=== PATIENT | male | born 1995 | race African-American/Black ===

== ENCOUNTER 2017-03-06 16:33 | Emergency (ER) | payer MEDICAID ==
[~2017-03-06] VITALS: Ht 185.4 cm; Wt 73.0 kg
[~2017-03-06 16:33] MED LIST: DIPH25CA83 PO; IBUP-1509 PO; IBUP-1510 PO; KEPP500 PO; RISO02 PO; TOPI100T9 PO
[2017-03-06 16:35] VITALS: BP 131/77
[2017-03-06] MEDS ORDERED: ACETAMINOPHEN 650MG/20.3ML UDC PO ONE (17:45)
== END 2017-03-06 17:54 | disposition home or self-care (01) ==
LOC: ER 16:43
DX: S01.81XA Laceration without foreign body of other part of head, initial encounter (principal); J45.909 Unspecified asthma, uncomplicated; F84.0 Autistic disorder; Z91.018 Allergy to other foods; W22.8XXA Striking against or struck by other objects, initial encounter; Y93.89 Activity, other specified; Y92.89 Other specified places as the place of occurrence of the external cause; Y99.8 Other external cause status
CPT/HCPCS: 99283

== ENCOUNTER 2018-07-05 13:07 | Emergency (ER) | payer MEDICAID ==
[~2018-07-05] VITALS: Ht 177.8 cm; Wt 77.0 kg
[~2018-07-05 13:07] MED LIST changes: -IBUP-1509 PO; -IBUP-1510 PO; +IBUP-2028 PO; +IBUP-2030 PO; +TOP100 PO; -TOPI100T9 PO
[2018-07-05 13:34] VITALS: BP 109/74
== END 2018-07-05 14:51 | disposition home or self-care (01) ==
LOC: ER 14:18
DX: S00.83XA Contusion of other part of head, initial encounter (principal); W06.XXXA Fall from bed, initial encounter; Y93.84 Activity, sleeping; Y92.092 Bedroom in other non-institutional residence as the place of occurrence of the external cause; G40.909 Epilepsy, unspecified, not intractable, without status epilepticus; F90.9 Attention-deficit hyperactivity disorder, unspecified type; F84.0 Autistic disorder; R03.0 Elevated blood-pressure reading, without diagnosis of hypertension; Z91.012 Allergy to eggs; Z91.02 Food additives allergy status; Z91.010 Allergy to peanuts; Z91.018 Allergy to other foods; Z79.899 Other long term (current) drug therapy
CPT/HCPCS: 99281

== ENCOUNTER 2021-07-03 06:48 | Emergency (ER) | payer MEDICAID, OTHER | END 2021-07-03 09:00 | disposition left against medical advice (07) | LOC: ER 06:48 | DX: Z53.21 Procedure and treatment not carried out due to patient leaving prior to being seen by health care provider (principal) ==

== ENCOUNTER 2021-10-15 02:21 | Emergency (ER) | payer OTHER ==
[~2021-10-15] VITALS: Ht 182.9 cm; Wt 82.0 kg
[2021-10-15] MEDS ORDERED: OLANZAPINE 10 MG/VIAL IM ONE (03:00)
[2021-10-15] MEDS ORDERED: HALOPERIDOL LACTATE 5MG/ML VIAL IM ONE (03:30)
[2021-10-15 04:30] VITALS: BP 99/48
== END 2021-10-15 06:42 | disposition home or self-care (01) ==
LOC: ER 02:21
DX: S00.81XA Abrasion of other part of head, initial encounter (principal); J45.909 Unspecified asthma, uncomplicated; Z98.890 Other specified postprocedural states; Z91.018 Allergy to other foods; Z79.899 Other long term (current) drug therapy; Z86.59 Personal history of other mental and behavioral disorders; W22.01XA Walked into wall, initial encounter; Y93.89 Activity, other specified; Y92.89 Other specified places as the place of occurrence of the external cause; Y99.8 Other external cause status
CPT/HCPCS: 96372; 99283; J3490

== ENCOUNTER 2022-11-12 19:06 | Inpatient (IN) | payer MEDICAID, OTHER ==
[~2022-11-12] VITALS: Ht 182.9 cm; Wt 81.6 kg
[2022-11-12] MEDS ORDERED: DIPHENHYDRAMINE 25MG CAPSULE PO ONE (20:00)
[2022-11-12] MEDS ORDERED: SODIUM CHLORIDE 0.9% 1000ML BAG (SEPSIS BOLUS) IV ONE (20:00)
[2022-11-12 20:39] LABS: BASOPHILS % 0.2 % (0.0-2.0); EOSINOPHILS % 0.3 % (0.0-5.0); HEMATOCRIT. 50.8 % (42.0-52.0); HEMOGLOBIN. 17.4 g/dL (14.0-18.0); LYMPHOCYTES % 11.7 % (20.0-50.0); MEAN CORPUSCULAR HEMOGLOBIN 31.4 pg (28.0-32.0); MEAN CORPUSCULAR VOLUME 91.6 fL (80.0-94.0); MEAN PLATELET VOLUME 9.5 fl (7.4-10.4); MONOCYTES % 4.5 % (2.0-8.0); NEUTROPHILS % 83.3 % (40.0-76.0); PLATELET 197 x1000/uL (130-400); RED BLOOD CELL COUNT 5.54 mill/uL (4.7-6.1); RED CELL DISTRIBUTION WIDTH 12.8 % (11.6-14.6)
[2022-11-12 20:44] LABS: CHLORIDE 110 mEq/L (98-107)
[2022-11-12 20:50] LABS: INR 1.1; PROTHROMBIN TIME 11.9 sec (9.6-11.0)
[2022-11-12] MEDS ORDERED: PIPERACILLIN/TAZOBACTAM 3.375GM/50ML PREMIX IV ONE (22:00)
[2022-11-12] MEDS ORDERED: VANCOMYCIN 1G PREMIX 200 ML IV NR (22:00)
[2022-11-12] MEDS ORDERED: PIPERACILLIN/TAZOBACTAM 3.375G in DEXT 5% WATER 50ML IV NR (22:00)
[2022-11-13] MEDS ORDERED: LORAZEPAM 2MG/ML CPJ IM PRN (00:45)
[2022-11-13 02:15] LABS: CLARITY URINE CLOUDY (CLEAR); COLOR URINE YELLOW (YELLOW); KETONES URINE TRACE (NEGATIVE); LEUKOCYTE ESTERASE URINE NEGATIVE (NEGATIVE); NITRITE URINE NEGATIVE (NEGATIVE); OCCULT BLOOD URINE NEGATIVE (NEGATIVE); PROTEIN URINE TRACE (NEGATIVE); SPECIFIC GRAVITY URINE 1.022 (1.005-1.030); UROBILINOGEN URINE 0.2 E.U./dL (0.2-1.0)
[2022-11-13] MEDS ORDERED: HALOPERIDOL LACTATE 5MG/ML VIAL IM ONE (02:45)
[2022-11-13] MEDS ORDERED: DIPHENHYDRAMINE 50MG/ML VIAL IM ONE (02:45)
[2022-11-13 04:35] VITALS: BP 108/70
[2022-11-13] MEDS ORDERED: DIPHENHYDRAMINE 25MG CAPSULE PO SCH (05:15)
[2022-11-13] MEDS ORDERED: HALOPERIDOL LACTATE 5MG/ML VIAL IM SCH (07:30)
[2022-11-13] MEDS: TOPIRAMATE 100MG TABLET PO SCH ×2 (08:08→16:42)
[2022-11-13] MEDS: LEVETIRACETAM 500MG TABLET PO SCH ×2 (08:08→16:42)
[2022-11-13] MEDS: RISPERIDONE 0.5MG TABLET PO SCH ×2 (08:09→16:42)
[2022-11-13 10:31] LABS: BASOPHILS % 0.2 % (0.0-2.0); EOSINOPHILS % 5.3 % (0.0-5.0); HEMATOCRIT. 39.2 % (42.0-52.0); HEMOGLOBIN. 13.6 g/dL (14.0-18.0); LYMPHOCYTES % 15.7 % (20.0-50.0); MEAN CORPUSCULAR HEMOGLOBIN 31.9 pg (28.0-32.0); MEAN CORPUSCULAR VOLUME 92.1 fL (80.0-94.0); MEAN PLATELET VOLUME 9.1 fl (7.4-10.4); MONOCYTES % 8.7 % (2.0-8.0); NEUTROPHILS % 70.1 % (40.0-76.0); PLATELET 134 x1000/uL (130-400); RED BLOOD CELL COUNT 4.25 mill/uL (4.7-6.1); RED CELL DISTRIBUTION WIDTH 12.8 % (11.6-14.6)
[2022-11-13 10:39] LABS: CHLORIDE 114 mEq/L (98-107)
[2022-11-13 12:00] VITALS: BP 101/48
[2022-11-13 16:00] VITALS: BP 100/52
[2022-11-13 16:46] VITALS: BP 100/52
== END 2022-11-13 18:21 | disposition home or self-care (01) | DRG 811 ==
LOC: ER 19:06 → 7EST 22:46 → EDBEDREQ 11-13 00:39 → ENRESERV 11-13 04:08
PROVIDERS: ADMIT Internal Medicine; ATTEND Internal Medicine
DX: T78.40XA Allergy, unspecified, initial encounter (principal); N17.0 Acute kidney failure with tubular necrosis; D64.9 Anemia, unspecified; Z20.822 Contact with and (suspected) exposure to COVID-19; F84.0 Autistic disorder; J45.909 Unspecified asthma, uncomplicated; Z91.010 Allergy to peanuts; Z91.012 Allergy to eggs; Z91.018 Allergy to other foods; D72.829 Elevated white blood cell count, unspecified
CPT/HCPCS: 36415; 71045; 80048; 80053; 81003; 82962; 83605; 83880; 84145; 84484; 85025; 87426; 87804; 93005; 99291; C9803; J1200; J1630; J2060; J2543; J3370; J7030; J7060; Q0163

== ENCOUNTER 2023-01-30 15:48 | Emergency (ER) | payer MEDICAID ==
[~2023-01-30] VITALS: Ht 182.9 cm; Wt 82.0 kg
[2023-01-30 15:59] VITALS: BP 110/53
[2023-01-30] MEDS ORDERED: ACETAMINOPHEN 500MG TABLET PO ONE (16:30)
== END 2023-01-30 17:25 | disposition left against medical advice (07) ==
LOC: ER 16:05
DX: Z53.21 Procedure and treatment not carried out due to patient leaving prior to being seen by health care provider (principal)
CPT/HCPCS: 99281

== ENCOUNTER 2023-02-05 15:27 | Emergency (ER) | payer MEDICAID, OTHER ==
[~2023-02-05] VITALS: Ht 175.3 cm; Wt 80.0 kg
[2023-02-05 15:37] VITALS: BP 118/78; PULSE 62; RESP 18; TEMP 98; O2SAT 100
[2023-02-05] MEDS ORDERED: TETANUS, DIPHTHERIA, PERTUSSIS VAC/PF 0.5ML (>10YR OLD) IM ONE (17:15)
[2023-02-05] MEDS ORDERED: OLANZAPINE 10 MG/VIAL IM ONE (17:15)
[2023-02-05] MEDS ORDERED: LORAZEPAM 2MG/ML CPJ IM ONE (17:30)
== END 2023-02-05 18:44 | disposition home or self-care (01) ==
LOC: ER 15:27
DX: S01.511A Laceration without foreign body of lip, initial encounter (principal); Z79.899 Other long term (current) drug therapy; X58.XXXA Exposure to other specified factors, initial encounter; Y93.89 Activity, other specified; Y92.89 Other specified places as the place of occurrence of the external cause; Y99.8 Other external cause status
CPT/HCPCS: 90715; 12013; 90471; 96372; 99284; J2060; Z7610

== ENCOUNTER 2023-04-09 12:51 | Emergency (ER) | payer MEDICAID, OTHER ==
[~2023-04-09] VITALS: Ht 190.5 cm; Wt 77.0 kg
[~2023-04-09 12:51] MED LIST changes: +DIVA500T3 PO; -IBUP-2028 PO; +LORA-250 PO; +OXCA600T20 PO; -RISO02 PO; +RISP0.5T65 PO; +RISP2TAB85 PO; +TRAZ-251 PO
[2023-04-09 12:55] VITALS: BP 111/66; PULSE 110; RESP 18; TEMP 98; O2SAT 98
[2023-04-09] MEDS ORDERED: LORAZEPAM 1MG TABLET PO ONE (13:45)
== END 2023-04-09 18:04 | disposition home or self-care (01) ==
LOC: ER 12:51
DX: S00.01XA Abrasion of scalp, initial encounter (principal); R45.1 Restlessness and agitation; X58.XXXA Exposure to other specified factors, initial encounter; Y93.89 Activity, other specified; Y92.89 Other specified places as the place of occurrence of the external cause; Y99.8 Other external cause status
CPT/HCPCS: 99283

== ENCOUNTER 2023-04-13 21:55 | Emergency (ER) | payer MEDICAID ==
[~2023-04-13] VITALS: Ht 182.9 cm; Wt 75.5 kg
[2023-04-13 22:46] VITALS: BP 112/70; PULSE 63; RESP 18; O2SAT 100
[2023-04-13] MEDS ORDERED: BO1 TP (23:21)
== END 2023-04-13 23:47 | disposition home or self-care (01) ==
LOC: ER 21:55
DX: S00.81XA Abrasion of other part of head, initial encounter (principal); X58.XXXA Exposure to other specified factors, initial encounter; Y93.89 Activity, other specified; Y92.89 Other specified places as the place of occurrence of the external cause; Y99.8 Other external cause status
CPT/HCPCS: 99282

== ENCOUNTER 2025-06-27 12:14 | Emergency (ER) | payer MEDICAID ==
[~2025-06-27] VITALS: Ht 185.4 cm; Wt 92.0 kg
[~2025-06-27 12:14] MED LIST changes: +BO1 TP; +RISP-29 PO; -RISP0.5T65 PO; +RISP0.5T79 PO; -RISP2TAB85 PO
[2025-06-27] MEDS ORDERED: METHYLPREDNISOLONE 40MG/ML INJ IV ONE (12:45)
[2025-06-27] MEDS: LEVETIRACETAM 500MG PREMIX 100 ML IV ONE (13:05)
[2025-06-27] MEDS: DIPHENHYDRAMINE 50MG/ML VIAL IV ONE (13:05)
[2025-06-27] MEDS: LORAZEPAM 2MG/ML UD SYRINGE IV NR ×2 (13:05→15:03)
[2025-06-27] MEDS: METHYLPREDNISOLONE SOD SUCC 125MG/2ML (ACT-O-VIAL) IV NR (13:23)
[2025-06-27 14:22] LABS: BASOPHILS % 0.2 % (0.0-2.0); EOSINOPHILS % 0.5 % (0.0-5.0); HEMATOCRIT. 46.0 % (42.0-52.0); HEMOGLOBIN. 15.5 g/dL (14.0-18.0); LYMPHOCYTES % 15.0 % (20.0-50.0); MEAN PLATELET VOLUME 9.1 fl (7.4-10.4); MONOCYTES % 7.0 % (2.0-8.0); NEUTROPHILS % 77.3 % (40.0-76.0); PLATELET 169 x1000/uL (130-400); RED BLOOD CELL COUNT 4.87 mill/uL (4.7-6.1); RED CELL DISTRIBUTION WIDTH 13.3 % (11.6-14.6)
[2025-06-27 14:37] LABS: CREATININE 1.0 mg/dL (0.6-1.3)
[2025-06-27 14:38] LABS: ETHANOL BLOOD < 10 mg/dL (<10); UREA NITROGEN BLOOD 12 mg/dL (9-23)
[2025-06-27 14:39] LABS: ASPARTATE AMINOTRANSFERASE 20 IU/L (<34)
[2025-06-27 14:40] VITALS: O2SAT 99
[2025-06-27 14:40] LABS: BILIRUBIN DIRECT 0.2 mg/dL (<=3.0); BILIRUBIN TOTAL 0.5 mg/dL (0.1-1.0); PROTEIN TOTAL 6.7 g/dL (6.0-8.3)
[2025-06-27 15:18] VITALS: BP 102/56; PULSE 68; RESP 18; TEMP 37.1; O2SAT 98
== END 2025-06-27 15:48 | disposition home or self-care (01) ==
LOC: ER 12:14 → CANBEDREQ 14:51 → ER 15:48
DX: G40.909 Epilepsy, unspecified, not intractable, without status epilepticus (principal); F84.0 Autistic disorder; J45.909 Unspecified asthma, uncomplicated; Z91.010 Allergy to peanuts; Z91.018 Allergy to other foods; Z79.899 Other long term (current) drug therapy
CPT/HCPCS: 80076; 80048; 80320; 83735; 85025; 36415; 93005; 96365; 96375; 96376; 99285; J1953; J1200; J2060; J2919; Z7610; G0480